=== PATIENT | female | born 1965 | race Two or more races ===

== ENCOUNTER 2016-05-21 08:21 | Emergency (ER) | payer OTHER ==
[~2016-05-21] VITALS: Ht 162.6 cm; Wt 81.6 kg
[~2016-05-21 08:21] MED LIST: ACETAMINOPHEN-1 EAC1 ORAL; ALBUTEROL SULF8.5 GM INH; AMLODIPINE BES2.5 MG ORAL; AZITHROMYCIN250 MG ORAL; MELOXICAM7.5 MG PO; PREDNISONE20 MG ORAL
[2016-05-21 08:43] VITALS: BP 129/85
[2016-05-21] MEDS ORDERED: Metoclopramide 10mg/2ml Inj IVP ONE (08:45)
[2016-05-21] MEDS ORDERED: Ketorolac 30mg Inj IV ONE (08:45)
[2016-05-21] MEDS ORDERED: cefTRIAXone 1 GM in NS 55 ML IVPB ONE (08:45)
[2016-05-21] MEDS ORDERED: DiphenhydrAMINE 50mg/ml Inj IVP ONE (08:45)
[2016-05-21 09:56] LABS: MEAN CORPUSCULAR HEMOGLOBIN 31.7 PG (27.0-31.0); MEAN CORPUSCULAR VOLUME 93 FL (80-99); MEAN PLATELET VOLUME 7.5 FL (6.5-10.1); PLATELET COUNT 238 K/UL (150-450); RED BLOOD COUNT 4.42 M/UL (4.20-5.40); RED CELL DISTRIBUTION WIDTH 12.2 % (11.6-14.8); WHITE BLOOD COUNT 13.8 K/UL (4.8-10.8)
[2016-05-21 10:12] LABS: ALANINE AMINOTRANSFERASE 17 U/L (3-33); ALBUMIN/GLOBULIN RATIO 1.2 (1.0-2.7); ANION GAP 16 (5-15); ASPARTATE AMINO TRANSFERASE 15 U/L (5-40); CALCIUM 8.8 mg/dL (8.6-10.2); CARBON DIOXIDE 27 mEQ/L (20-30); CHLORIDE 91 mEQ/L (98-107); CREATININE 0.6 mg/dL (0.5-0.9); GLOMERULAR FILTRATION RATE > 60 mL/min (>60); HEMOLYSIS 5; POTASSIUM 3.6 mEQ/L (3.4-4.9); SODIUM 134 mEQ/L (135-145); TOTAL PROTEIN 7.4 g/dL (6.6-8.7); TROPONIN I < 0.30 ng/mL (<=0.30)
--- NOTE | 2016-05-21 10:13 | Diagnostic Imaging Report ---
Indication: H/A Technique: Continuous helical CT scanning of the head was performed without intravenous contrast material. Axial and coronal 5 mm sections were generated. Dose: Total Dose Length Product - DLP [address] Dose Index - CTDIvol(s) 70.38 mGy. Comparison:01/15/2010 Findings: The ventricular system is normal in size and configuration. There is no shift of midline structures. No abnormal extra-axial fluid collections are noted. There is no evidence of intracerebral bleeding. No other abnormal high or low density areas are noted within the brain. Impression: Normal CT scan of the head without contrast material. The CT scanner at [facility] is accredited by the [employer] and the scans are performed using protocols designed to limit radiation exposure to as low as reasonably achievable to attain images of sufficient resolution adequate for diagnostic evaluation.
[2016-05-21 10:41] LABS: BAND NEUTROPHILS % (MANUAL) 4 % (0-8); BASOPHILS % (MANUAL) 0 % (0-2); EOSINOPHILS % (MANUAL) 0 % (0-3); LYMPHOCYTES % (MANUAL) 6 % (20-45); NEUTROPHILS % (MANUAL) 86 % (45-75); PLATELET ESTIMATE ADEQUATE; PLATELET MORPHOLOGY NORMAL; TOTAL CELLS COUNTED 100
[2016-05-21 11:25] VITALS: BP 118/84
[2016-05-21 11:34] LABS: APPEARANCE,URINE CLEAR; KETONES,URINE NEGATIVE (NEGATIVE); LEUKOCYTE ESTERASE ,URINE NEGATIVE (NEGATIVE); NITRITE,URINE NEGATIVE (NEGATIVE); PH,URINE 6 (4.5-8.0); PROTEIN,URINE 1+ (NEGATIVE); UROBILINOGEN,URINE NORMAL MG/DL (0.0-1.0)
[2016-05-21 11:47] LABS: BACTERIA,URINE FEW /HPF; SQUAMOUS EPITHELIAL CELL,UR FEW /LPF (NONE/OCC); WBC,URINE 0-2 /HPF (0 - 2)
[2016-05-21 12:22] VITALS: BP 101/64
--- NOTE | 2016-05-21 13:15 | Emergency Room Report ---
History of Present Illness General Chief Complaint: Headache Source: Patient Present Illness HPI Patient presents with headache fever sore throat. She also complains about her vision being off at this time. There is some generalized weakness in her body. She denies any vomiting or diarrhea or, chest pain cough or dysuria. The headache is pounding, diffuse 10/10, not radiating. She did not take any medication. She is able to tolerate liquids, but has not been taking much. No neck stiffness. She was seen here 12/2015 with frontal EMERSON associated with hypertension (had recently started blood pressure medication). H/O influenza A in past. No rashes and denies diabetes. 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 Nursing Documentation: PMH: Agreed, PSxH: Agreed Nursing Documentation-PMH Past Medical History: No History, Except For Hx Hypertension: Yes Review of Systems All Other Systems: negative except mentioned in HPI Physical Exam Vital Signs Date Time Temp Pulse Resp B/P Pulse Ox O2 Delivery O2 Flow Rate FiO2 05/21/16 08:33 100.2 102 18 129/85 95 Room Air Sp02 EP Interpretation: reviewed, normal General Appearance: well appearing, GCS 15, non-toxic, mild distress Head: normocephalic Eyes: bilateral eye EOMI, bilateral eye PERRL, bilateral eye normal inspection ENT: hearing grossly normal, moist mucus membranes, pharyngeal erythema, other - snuses not tender Neck: full range of motion, supple, no meningismus Respiratory: chest non-tender, lungs clear, normal breath sounds Cardiovascular #1: tachycardia Cardiovascular #2: 2+ radial (R) Gastrointestinal: normal inspection, normal bowel sounds, non tender, no mass, non-distended Musculoskeletal: back normal, gait/station normal, normal range of motion Neurologic: alert, oriented x3, 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 DDx: strep, viral, dehydration , fever related cephalgia, migraine, sinusitis amongst others. Consider meningitis, though no meningismus. Evidence of pharyngitis. Concern over blurred vision, though non-focal neuro. Will obtain CT of head. Will treat with fever control, zofran. Will allso start antibiotics as appears strep source. Labs with leukocytosis, normal lactate, min elevated glucose. Patient improved. Mehran PO and no more headache. Laboratory Tests Test 05/21/16 09:27 05/21/16 11:08 White Blood Count 13.8 K/UL (4.8-10.8) H Red Blood Count 4.42 M/UL (4.20-5.40) Hemoglobin 14.0 G/DL (12.0-16.0) Hematocrit 41.2 % (37.0-47.0) Mean Corpuscular Volume 93 FL (80-99) Mean Corpuscular Hemoglobin 31.7 PG (27.0-31.0) H Mean Corpuscular Hemoglobin Concent 34.0 G/DL (32.0-36.0) Red Cell Distribution Width 12.2 % (11.6-14.8) Platelet Count 238 K/UL (150-450) Mean Platelet Volume 7.5 FL (6.5-10.1) Neutrophils (%) (Auto) % (45.0-75.0) Lymphocytes (%) (Auto) % (20.0-45.0) Monocytes (%) (Auto) % (1.0-10.0) Eosinophils (%) (Auto) % (0.0-3.0) Basophils (%) (Auto) % (0.0-2.0) Differential Total Cells Counted 100 Neutrophils % (Manual) 86 % (45-75) H Lymphocytes % (Manual) 6 % (20-45) L Monocytes % (Manual) 4 % (1-10) Eosinophils % (Manual) 0 % (0-3) Basophils % (Manual) 0 % (0-2) Band Neutrophils 4 % (0-8) Platelet Estimate Adequate Platelet Morphology Normal Red Blood Cell Morphology Normal Sodium Level 134 mEQ/L (135-145) L Potassium Level 3.6 mEQ/L (3.4-4.9) Chloride Level 91 mEQ/L (98-107) L Carbon Dioxide Level 27 mEQ/L (20-30) Anion Gap 16 (5-15) H Blood Urea Nitrogen 13 mg/dL (7-23) Creatinine 0.6 mg/dL (0.5-0.9) Estimate Glomerular Filtration Rate > 60 mL/min (>60) Glucose Level 130 mg/dL (74-106) H Lactic Acid Level 1.80 mmol/L (0.66-2.22) Calcium Level 8.8 mg/dL (8.6-10.2) Total Bilirubin 0.4 mg/dL (0.0-1.2) Aspartate Amino Transferase (AST) 15 U/L (5-40) Alanine Aminotransferase (ALT) 17 U/L (3-33) Alkaline Phosphatase 74 U/L (35-104) Total Creatine Kinase 41 U/L (26-140) Troponin I < 0.30 ng/mL (<=0.30) Total Protein 7.4 g/dL (6.6-8.7) Albumin 4.1 g/dL (3.5-5.2) Globulin 3.3 g/dL Albumin/Globulin Ratio 1.2 (1.0-2.7) Urine Color Pale yellow Urine Appearance Clear Urine pH 6 (4.5-8.0) Urine Specific Rillito 1.010 (1.005-1.035) Urine Protein 1+ (NEGATIVE) H Urine Glucose (UA) Negative (NEGATIVE) Urine Ketones Negative (NEGATIVE) Urine Occult Blood 4+ (NEGATIVE) H Urine Nitrite Negative (NEGATIVE) Urine Bilirubin Negative (NEGATIVE) Urine Urobilinogen Normal MG/DL (0.0-1.0) Urine Leukocyte Esterase Negative (NEGATIVE) Urine RBC 5-10 /HPF (0 - 2) H Urine WBC 0-2 /HPF (0 - 2) Urine Squamous Epithelial Cells Few /LPF (NONE/OCC) Urine Bacteria Few /HPF (NONE) Microbiology Date/Time Source Procedure Growth Status 05/21/16 09:27 Nasal Nares Influenza Types A,B Antigen (ROSE) - Final Complete EKG Diagnostic Results Rate: tachycardiac Rhythm: NSR ST Segments: no acute changes Rhythm Strip Diag. Results EP Interpretation: yes Rhythm: NSR, no PVC's, no ectopy CT/MRI/US Diagnostic Results CT/MRI/US Diagnostic Results : Imaging Test Ordered: head Impression nl brain, bones and ST - sinuses normal Last Vital Signs Date Time Temp Pulse Resp B/P Pulse Ox O2 Delivery O2 Flow Rate FiO2 05/21/16 13:52 99.2 76 18 101/64 95 Room Air Status: improved Disposition: HOME, SELF-CARE Condition: Improved Scripts Ibuprofen* (MOTRIN*) 600 Mg Tablet 600 MG ORAL Q6H Y for For Pain, #16 TAB Prov: Antony Nazario M.D. 05/21/16 Ondansetron Odt* (ZOFRAN ODT*) 4 Mg Tab.rapdis 4 MG ORAL Q8H Y for Nausea & Vomiting, #6 TAB 1 Refill Prov: Antony Nazario M.D. 05/21/16 Amoxicillin/Potassium Clav 500-125 Tablet* (AUGMENTIN 500-125 TABLET*) 1 Each Tablet 1 TAB ORAL THREE TIMES A DAY, #21 TAB Prov: Antony Nazario M.D. 05/21/16 Referrals: [facility],REFERRING (PCP) Antony Nazario M.D. May 21, 2016 13:15
[2016-05-21] MEDS ORDERED: AUGMENTIN 500-1 EACH ORAL (13:21)
[2016-05-21] MEDS ORDERED: IBUPROFEN600 MG ORAL (13:21)
[2016-05-21] MEDS ORDERED: ZOFRAN ODT4 MG ORAL (13:21)
[2016-05-21 13:52] VITALS: BP 101/64
--- NOTE | 2016-05-23 13:57 | Cardiology Report ---
APPROVED REPORT EKG Measurement Heart [id number] 130P30 [id number] Sinus tachycardia Moderate voltage criteria for LVH, may be normal variant Borderline ECG
--- NOTE | 2016-06-15 14:59 | Diagnostic Imaging Report ---
Indication: Short of breath Technique: XRAY CHEST 1 V Comparison: 04/26/2015. Findings: The patient has taken a poor inspiration. The cardiomediastinal silhouette is normal. The lungs are clear. There is no evidence of pleural fluid. The bony structures are unremarkable. Impression: Poor inspiratory chest. Otherwise grossly negative.
== END 2016-05-21 13:52 | disposition home or self-care (01) ==
LOC: EMR 09:10
DX: R50.9 Fever, unspecified (principal); R51 Headache; J02.9 Acute pharyngitis, unspecified; I10 Essential (primary) hypertension
CPT/HCPCS: 36415; 70450; 71010; 80053; 81003; 82550; 83605; 84484; 85007; 85025; 86710; 93005; 96360; 96374; 96375; 99284; J0696; J1200; J1885; J2765

== ENCOUNTER 2016-10-05 00:03 | Emergency (ER) | payer MEDICAID, OTHER ==
[~2016-10-05] VITALS: Ht 160 cm; Wt 70.8 kg
[~2016-10-05 00:03] MED LIST changes: +AUGMENTIN 500-1 EACH ORAL; +IBUPROFEN600 MG ORAL; +ZOFRAN ODT4 MG ORAL
[2016-10-05 00:10] VITALS: BP 138/82
[2016-10-05] MEDS ORDERED: OMEPRAZOLE20 M2 ORAL (00:12)
[2016-10-05 00:25] VITALS: BP 135/80
[2016-10-05] MEDS ORDERED: IBUPROFEN600 MG ORAL (00:27)
[2016-10-05] MEDS ORDERED: AZITHROMYCIN250 MG ORAL (00:27)
--- NOTE | 2016-10-05 00:28 | Emergency Room Report ---
History of Present Illness General Chief Complaint: Generalized Weakness Source: Patient Present Illness HPI This is a 51-year-old female who presents with chief complaint of sore throat, fever, body pain. Onset yesterday. She took 2 Motrin without much relief. Nausea but no vomiting. Nothing made it better. Drinking made it worse. Pain is 8/10. Allergies: Coded Allergies: No Known Allergies (Unverified , 10/05/16) Patient History Past Medical History: see triage record, old chart reviewed Past Surgical History: other Pertinent Family History: none Social History: Denies: smoking Last Menstrual Period: n/a Now: No Immunizations: other Reviewed Nursing Documentation: PMH: Agreed, PSxH: Agreed Nursing Documentation-PMH Past Medical History: No History, Except For Hx Hypertension: Yes Review of Systems Constitutional: Reports: chills, fever Eye: Denies: blurred vision, eye pain ENT: Reports: throat pain, Denies: ear pain, nose congestion, throat swelling Respiratory: Denies: cough, shortness of breath Cardiovascular: Denies: chest pain, palpitations Gastrointestinal: Denies: abdominal pain, diarrhea, nausea, vomiting Musculoskeletal: Denies: back pain, joint pain Skin: Denies: rash Neurological: Denies: headache, numbness Endocrine: Denies: increased thirst, increased urine Hematologic/Lymphatic: Denies: easy bruising All Other Systems: negative except mentioned in HPI Physical Exam Vital Signs Date Time Temp Pulse Resp B/P Pulse Ox O2 Delivery O2 Flow Rate FiO2 10/05/16 00:06 100.0 103 20 145/84 95 Room Air vitals with fever Sp02 EP Interpretation: reviewed, normal General Appearance: well appearing, no apparent distress, alert Head: normocephalic, atraumatic Eyes: bilateral eye EOMI, bilateral eye PERRL ENT: hearing grossly normal, tonsillar swelling, pharyngeal erythema, tonsillar exudate Neck: full range of motion, supple, no meningismus Respiratory: chest non-tender, lungs clear, normal breath sounds Cardiovascular #1: regular rate, rhythm, no murmur Gastrointestinal: normal bowel sounds, non tender, no mass, no organomegaly, no bruit, non-distended Musculoskeletal: back normal, gait/station normal, normal range of motion Psychiatric: mood/affect normal Skin: warm/dry Medical Decision Making Diagnostic Impression: Primary Impression: Pharyngitis Qualified Codes: J02.9 - Acute pharyngitis, unspecified ER Course Patient with fever and exudative tonsillitis. Most likely strep. She looks well. No evidence of sepsis, pneumonia, retropharyngeal abscess, peritonsillar abscess or Pawan angina. We'll discharge home. Last Vital Signs Date Time Temp Pulse Resp B/P Pulse Ox O2 Delivery O2 Flow Rate FiO2 10/05/16 00:06 100.0 103 20 145/84 95 Room Air Status: improved Disposition: HOME, SELF-CARE Condition: Stable Scripts Azithromycin* (ZITHROMAX*) 250 Mg Tablet 250 MG ORAL DAILY, #4 TAB 0 Refills Prov: JOAO MCKINLEY M.D. 10/05/16 Ibuprofen* (MOTRIN*) 600 Mg Tablet 600 MG ORAL THREE TIMES A DAY, #30 TAB 0 Refills Prov: JOAO MCKINLEY M.D. 10/05/16 Additional Instructions: Followup with your DrDavid in 2-3 days. Return if symptom worsen. JOAO MCKINLEY M.D. Oct 05, 2016 00:28
[2016-10-05 00:30] VITALS: BP 135/80
[2016-10-05] MEDS ORDERED: Acetaminophen 500mg (ES) tab ORAL ONE (00:30)
[2016-10-05] MEDS ORDERED: Azithromycin 250mg tab ORAL ONE (00:30)
== END 2016-10-05 00:30 | disposition home or self-care (01) ==
LOC: EMR 00:24
DX: J02.9 Acute pharyngitis, unspecified (principal); I10 Essential (primary) hypertension
CPT/HCPCS: 99284; Q0144

== ENCOUNTER 2017-01-08 20:28 | Emergency (ER) | payer MEDICAID, OTHER ==
[~2017-01-08] VITALS: Ht 160 cm; Wt 72.6 kg
[~2017-01-08 20:28] MED LIST changes: +OMEPRAZOLE20 M2 ORAL
[2017-01-08] MEDS ORDERED: Tylenol #3 tab (300mg/30mg) ORAL ONE (20:45)
[2017-01-08] MEDS ORDERED: VENTOLIN HFA18 GM INH (20:45)
[2017-01-08] MEDS ORDERED: ACETAMINOPHEN-1 EAC1 ORAL (20:45)
[2017-01-08] MEDS ORDERED: PROMETHAZI6.25 MG/1 ORAL (20:45)
[2017-01-08] MEDS ORDERED: Albuterol ud Inhalation HHN ONE (20:45)
[2017-01-08 20:49] VITALS: BP 154/72
--- NOTE | 2017-01-08 21:10 | Emergency Room Report ---
History of Present Illness General Chief Complaint: Upper Respiratory Illness Source: Patient Present Illness HPI 51YOF walk-in with one week of cough with phlegm Denies fever/chills, sore throat, chest pain, SOB, abd pain Deneis sick contacts Denies smoking, COPD/ashtma Allergies: Coded Allergies: No Known Allergies (Unverified , 10/05/16) Patient History Past Medical History: none Past Surgical History: none Pertinent Family History: none Social History: Denies: smoking, alcohol use, drug use Now: No Immunizations: UTD Reviewed Nursing Documentation: PMH: Agreed, PSxH: Agreed Nursing Documentation-PMH Past Medical History: No History, Except For Hx Hypertension: Yes Review of Systems All Other Systems: negative except mentioned in HPI Physical Exam Vital Signs Date Time Temp Pulse Resp B/P (MAP) Pulse Ox O2 Delivery O2 Flow Rate FiO2 01/08/17 20:32 98.4 86 17 154/72 96 Room Air 01/08/17 20:53 21 Sp02 EP Interpretation: reviewed, normal General Appearance: normal inspection, well appearing, no apparent distress, alert, GCS 15, non-toxic Head: normocephalic, atraumatic Eyes: bilateral eye PERRL, bilateral eye EOMI ENT: normal ENT inspection, hearing grossly normal, normal voice Neck: normal inspection, full range of motion, supple, no bony tend Respiratory: normal inspection, lungs clear, normal breath sounds, no rhonchi, no respiratory distress, no retraction, no accessory muscle use, no wheezing, speaking full sentences Cardiovascular #1: regular rate, rhythm, no edema Gastrointestinal: normal inspection, normal bowel sounds, non tender, soft, no guarding, no hernia Genitourinary: no CVA tenderness Musculoskeletal: normal inspection, back normal, normal range of motion, Ramirez' s Sign negative Neurologic: normal inspection, alert, responsive, speech normal Psychiatric: normal inspection, judgement/insight normal, mood/affect normal Skin: normal inspection, normal color, no rash Medical Decision Making Diagnostic Impression: Primary Impression: Bronchitis ER Course VSS. Afebrile Lungs CTAB, no rhonchi Unlikely PNA Albuterol and T#3 given in ED DC home Close PMD followup Last Vital Signs Date Time Temp Pulse Resp B/P (MAP) Pulse Ox O2 Delivery O2 Flow Rate FiO2 01/08/17 21:05 82 18 99 Room Air 21 10/29/17 20:49 98.4 154/72 Status: improved Disposition: HOME, SELF-CARE Condition: Improved Scripts Promethazine Hcl (PROMETHAZINE HCL*) 6.25 Mg/5 Ml Syrup 5 ML ORAL Q8H for For Cough, #120 ML 0 Refills Prov: JOSEE STRINGER M.D. 01/08/17 Acetaminophen With Codeine (T#3) (TYLENOL #3 TAB*) Y Tab 1 TAB ORAL QHS Y for For Cough for 7 Days, #14 TAB Prov: JOSEE STRINGER M.D. 01/08/17 Albuterol Sulfate (VENTOLIN HFA) 18 Gm Hfa.aer.ad 1 PUFF INH EVERY 6 HOURS for For Cough, #18 GM 0 Refills Prov: JOSEE STRINGER M.D. 01/08/17 Patient Instructions: Upper Respiratory Infection, Adult Additional Instructions: - Use ventolin during the day for cough along with cough syrup - At night you can use cough syrup or Tylenol #3 for cough - Bronchitis cough CAN last 4-6 weeks - You do not need antibiotics at this point - likely caused by a virus - Follow up with your doctor in 2-3 days JOSEE STRINGER M.D. Jan 08, 2017 21:10
[2017-01-08 21:14] VITALS: BP 154/72
== END 2017-01-08 21:16 | disposition home or self-care (01) ==
LOC: EMR 21:10
DX: J40 Bronchitis, not specified as acute or chronic (principal); I10 Essential (primary) hypertension
CPT/HCPCS: 94640; 94664; 99284

== ENCOUNTER 2017-01-17 22:27 | Emergency (ER) | payer OTHER ==
[~2017-01-17] VITALS: Ht 160 cm; Wt 72.6 kg
[~2017-01-17 22:27] MED LIST changes: +PROMETHAZI6.25 MG/1 ORAL; +VENTOLIN HFA18 GM INH
[2017-01-17 23:10] VITALS: BP 135/78
[2017-01-17 23:10] LABS: APPEARANCE,URINE SLIGHTLY CLOUDY; BILIRUBIN, URINE NEGATIVE (NEGATIVE); COLOR,URINE YELLOW; GLUCOSE, URINE (UA) NEGATIVE (NEGATIVE); KETONES,URINE NEGATIVE (NEGATIVE); LEUKOCYTE ESTERASE ,URINE NEGATIVE (NEGATIVE); NITRITE,URINE NEGATIVE (NEGATIVE); PH,URINE 5 (4.5-8.0); PROTEIN,URINE 2+ (NEGATIVE); UROBILINOGEN,URINE NORMAL MG/DL (0.0-1.0)
[2017-01-17 23:12] LABS: EOSINOPHILS % (AUTO) 2.6 % (0.0-3.0); HEMATOCRIT 44.4 % (37.0-47.0); HEMOGLOBIN 13.8 G/DL (12.0-16.0); LYMPHOCYTES % (AUTO) 22.8 % (20.0-45.0); MEAN CORPUSCULAR VOLUME 97 FL (80-99); MONOCYTES % (AUTO) 7.3 % (1.0-10.0); NEUTROPHILS % (AUTO) 66.4 % (45.0-75.0); PLATELET COUNT 283 K/UL (150-450); RED BLOOD COUNT 4.59 M/UL (4.20-5.40); RED CELL DISTRIBUTION WIDTH 11.9 % (11.6-14.8); WHITE BLOOD COUNT 8.9 K/UL (4.8-10.8)
[2017-01-17 23:36] LABS: ALANINE AMINOTRANSFERASE 18 U/L (12-78); ALBUMIN 3.5 G/DL (3.4-5.0); ALBUMIN/GLOBULIN RATIO 0.9 (1.0-2.7); ALKALINE PHOSPHATASE 82 U/L (46-116); ANION GAP 6 mmol/L (5-15); ASPARTATE AMINO TRANSFERASE 9 U/L (15-37); BILIRUBIN,TOTAL 0.3 MG/DL (0.2-1.0); BLOOD UREA NITROGEN 13 mg/dL (7-18); CALCIUM 8.4 MG/DL (8.5-10.1); CARBON DIOXIDE 28 MMOL/L (21-32); CHLORIDE 105 MMOL/L (98-107); CREATININE 0.6 MG/DL (0.55-1.30); POTASSIUM 3.8 MMOL/L (3.5-5.1); SODIUM 139 MMOL/L (136-145)
[2017-01-18] MEDS ORDERED: Lidocaine 2% Visc 15ml soln ORAL ONE
[2017-01-18] MEDS ORDERED: Mylanta II UD 30ml ORAL ONE
[2017-01-18] MEDS ORDERED: PEPCID20 MG ORAL (00:11)
--- NOTE | 2017-01-18 00:15 | Emergency Room Report ---
History of Present Illness General Chief Complaint: Abdominal Pain Source: Patient Present Illness HPI 51YOF with known gastritis and endoscopy last month that shows gastritis on Omeprazole with epigastric pain for 2 days with nausea Denies fever/chills, vomiting Associated with some diarrhea Taking Omeprazole as prescribed No sick contacts or foreign travel No previous abd surgery Allergies: Coded Allergies: No Known Allergies (Unverified , 10/05/16) Patient History Past Medical History: other - gastritis Past Surgical History: none Pertinent Family History: none Social History: Denies: smoking, alcohol use, drug use Last Menstrual Period: None Now: No Immunizations: UTD Reviewed Nursing Documentation: PMH: Agreed, PSxH: Agreed Nursing Documentation-PMH Hx Hypertension: Yes Hx Asthma: Yes Review of Systems All Other Systems: negative except mentioned in HPI Physical Exam Vital Signs Date Time Temp Pulse Resp B/P (MAP) Pulse Ox O2 Delivery O2 Flow Rate FiO2 01/17/17 22:31 98.2 83 18 154/92 97 Room Air Sp02 EP Interpretation: reviewed, normal General Appearance: normal inspection, well appearing, no apparent distress, alert, GCS 15, non-toxic Head: normocephalic, atraumatic ENT: normal ENT inspection, hearing grossly normal, normal voice Neck: normal inspection, full range of motion, supple, no bony tend Respiratory: normal inspection, lungs clear, normal breath sounds, no respiratory distress, no retraction, no wheezing Cardiovascular #1: regular rate, rhythm, no edema Gastrointestinal: normal inspection, normal bowel sounds, non tender, soft, no guarding, no hernia, other - Mild epigastric ttp Genitourinary: no CVA tenderness Musculoskeletal: normal inspection, back normal, normal range of motion, Ramirez' s Sign negative Neurologic: normal inspection, alert, responsive, speech normal Psychiatric: normal inspection, judgement/insight normal, mood/affect normal Skin: normal inspection, normal color, no rash Medical Decision Making Diagnostic Impression: Primary Impression: Gastritis Qualified Codes: K29.50 - Unspecified chronic gastritis without bleeding ER Course VSS. Afebrile Mild epigastric ttp Labs: No leuks. H&h stable. LFTs normal. UA contaminated - no symptoms. Will NOT treat Given GI Cocktail and PPI IV here Will add pepcid to Omeprazole Close PMD followup DC home Low suspicion for acute bacterial/surgical process requiring additional lab work , imaging, admission and/or surgical evaluation at this time given well appearing, non-focal abd on serial exam, stable vital signs, and tolerating PO. In shared decision making process with patient, understands to return to ER for worsening symptoms and to followup with PMD in reasonable amount of time, 2-3 days. EKG Diagnostic Results Rate: normal Rhythm: NSR ST Segments: no acute changes ASA given to the pt in ED: No Rhythm Strip Diag. Results EP Interpretation: yes Rate: 74 Rhythm: NSR, no PVC's, no ectopy Last Vital Signs Date Time Temp Pulse Resp B/P (MAP) Pulse Ox O2 Delivery O2 Flow Rate FiO2 01/17/17 23:10 98.2 75 23 135/78 96 Room Air Status: improved Disposition: HOME, SELF-CARE Condition: Improved Scripts Famotidine (PEPCID) 20 Mg Tablet 20 MG ORAL BID for 7 Days, #14 TAB 0 Refills Prov: JOSEE STRINGER M.D. 01/18/17 Patient Instructions: Gastritis, Adult, [id number] Additional Instructions: - Continue taking omeprazole as prescribed - Add pepcid twice a day for 1 week or until your symptoms improve - Follow up with your doctor in 2-3 days JOSEE STRINGER M.D. Jan 18, 2017 00:15
[2017-01-18 00:31] VITALS: BP 118/58
--- NOTE | 2017-01-18 15:27 | Cardiology Report ---
APPROVED REPORT EKG Measurement Heart [id number] 136P51 [id number] Normal sinus rhythm Left axis deviation Minimal voltage criteria for LVH, may be normal variant Abnormal ECG
--- NOTE | 2017-01-18 15:27 | Cardiology Report ---
APPROVED REPORT EKG Measurement Heart [id number] [place] 136P51 [id number] Normal sinus rhythm Left axis deviation Minimal voltage criteria for LVH, may be normal variant Abnormal ECG
--- NOTE | 2017-01-18 15:27 | Cardiology Report ---
APPROVED REPORT EKG Measurement Heart [id number] 136P51 [id number] Normal sinus rhythm Left axis deviation Minimal voltage criteria for LVH, may be normal variant Abnormal ECG
== END 2017-01-18 00:32 | disposition home or self-care (01) ==
LOC: EMR 23:53
DX: K29.70 Gastritis, unspecified, without bleeding (principal); I10 Essential (primary) hypertension; J45.909 Unspecified asthma, uncomplicated
CPT/HCPCS: 36415; 80053; 81003; 83690; 84484; 85025; 87086; 93005; 96374; 96375; 99284; J2405; S0028

== ENCOUNTER 2017-11-01 18:30 | Emergency (ER) | payer MEDICAID ==
[~2017-11-01] VITALS: Ht 160 cm; Wt 74.8 kg
[~2017-11-01 18:30] MED LIST changes: +BENZONATATE200 MG ORAL; +PEPCID20 MG ORAL; +PROMETHAZINE-C118 M1 ORAL
[2017-11-01] MEDS ORDERED: TRAZODONE HCL50 MG ORAL (18:42)
[2017-11-01 18:53] VITALS: BP 136/78
[2017-11-01] MEDS ORDERED: TransDerm Scop 1mg/72HR Patch TDERMAL ONE (19:15)
[2017-11-01 19:53] LABS: BILIRUBIN, URINE NEGATIVE (NEGATIVE); COLOR,URINE PALE YELLOW; GLUCOSE, URINE (UA) NEGATIVE (NEGATIVE); KETONES,URINE NEGATIVE (NEGATIVE); LEUKOCYTE ESTERASE ,URINE NEGATIVE (NEGATIVE); NITRITE,URINE NEGATIVE (NEGATIVE); PH,URINE 5 (4.5-8.0); PROTEIN,URINE NEGATIVE (NEGATIVE); UROBILINOGEN,URINE NORMAL MG/DL (0.0-1.0)
[2017-11-01 19:55] LABS: BASOPHILS % (AUTO) 1.1 % (0.0-2.0); EOSINOPHILS % (AUTO) 1.9 % (0.0-3.0); LYMPHOCYTES % (AUTO) 28.5 % (20.0-45.0); MEAN CORPUSCULAR VOLUME 95 FL (80-99); NEUTROPHILS % (AUTO) 59.5 % (45.0-75.0); PLATELET COUNT 282 K/UL (150-450); RED BLOOD COUNT 4.41 M/UL (4.20-5.40); WHITE BLOOD COUNT 8.9 K/UL (4.8-10.8)
[2017-11-01 19:56] LABS: APPEARANCE,URINE CLEAR
[2017-11-01 20:06] LABS: ANION GAP 9 mmol/L (5-15); BLOOD UREA NITROGEN 16 mg/dL (7-18); CALCIUM 8.9 MG/DL (8.5-10.1); CARBON DIOXIDE 28 MMOL/L (21-32); CHLORIDE 104 MMOL/L (98-107); CREATININE 0.6 MG/DL (0.55-1.30); POTASSIUM 3.7 MMOL/L (3.5-5.1); SODIUM 141 MMOL/L (136-145)
[2017-11-01 20:11] LABS: ALANINE AMINOTRANSFERASE 18 U/L (12-78); ALBUMIN 3.5 G/DL (3.4-5.0); ALBUMIN/GLOBULIN RATIO 0.9 (1.0-2.7); ALKALINE PHOSPHATASE 78 U/L (46-116); ASPARTATE AMINO TRANSFERASE 9 U/L (15-37); BILIRUBIN,TOTAL 0.1 MG/DL (0.2-1.0)
[2017-11-01] MEDS ORDERED: Meclizine 25mg tab ORAL ONE (20:15)
[2017-11-01] MEDS ORDERED: MECLIZINE HCL25 MG ORAL (20:32)
--- NOTE | 2017-11-01 20:32 | Emergency Room Report ---
History of Present Illness General Chief Complaint: Dizziness Source: Patient, Medical Record Present Illness HPI 52 y/o female c/o positional vertigo for 3 days. Assoc sxs include feeling dizzy when she looks down. States sxs improve with laying in bed and are worse with movement and with walking. Not taking medications for sxs. States she has no other physical complaints. Denies any fever, chills, nausea, EMERSON, vision changes, CP, SOB, numbness, paralysis, facial droop or weakness, ALOC, abd pain , dysuria, or neck stiffness. Allergies: Coded Allergies: No Known Allergies (Unverified , 10/05/16) Patient History Past Medical History: see triage record Past Surgical History: , other - tubal ligation Pertinent Family History: HTN, other - insomnia Last Menstrual Period: 10/30/17 Now: No Reviewed Nursing Documentation: PMH: Agreed; PSxH: Agreed Nursing Documentation-PMH Past Medical History: No History, Except For Hx Hypertension: Yes Hx Asthma: Yes Review of Systems All Other Systems: negative except mentioned in HPI Physical Exam Vital Signs Date Time Temp Pulse Resp B/P (MAP) Pulse Ox O2 Delivery O2 Flow Rate FiO2 11/01/17 18:39 98.3 87 18 136/78 98 Room Air 98.2 Sp02 EP Interpretation: reviewed, normal General Appearance: no apparent distress, alert, GCS 15, non-toxic Head: normocephalic, atraumatic Eyes: bilateral eye normal inspection, bilateral eye PERRL, bilateral eye EOMI ENT: hearing grossly normal, normal pharynx, no angioedema, normal voice, TMs + canals normal, uvula midline Neck: full range of motion, supple, no meningismus, no bony tend, supple/symm/ no masses Respiratory: chest non-tender, lungs clear, normal breath sounds, speaking full sentences Cardiovascular #1: regular rate, rhythm, no edema, no gallop, normal capillary refill Gastrointestinal: non tender, soft Musculoskeletal: back normal, gait/station normal, normal range of motion, non- tender Neurologic: alert, oriented x3, responsive, continuity reader III-XII nml as tested, motor strength/tone normal, sensory intact, cerebellar normal, normal gait, speech normal Psychiatric: judgement/insight normal, memory normal, mood/affect normal, no suicidal/homicidal ideation Skin: normal color, no rash, warm/dry, well hydrated Medical Decision Making PA Attestation Dr. Dudley my supervising physician with whom patient management has been discussed with. Reaction to Intervention: Improved Diagnostic Impression: Primary Impression: Positional vertigo ER Course Pt. presents to the ED c/o Vertigo Ddx considered but are not limited to BPPV, labrynthitis, orthostatic hypotension, OH, CVA Vital signs: are WNL, pt. is afebrile H&PE are most consistent with positional vertigo ORDERS: CT Head, UA, CBC and CMP were negative ED INTERVENTIONS: Scopolamine w/ Improvement of sxs. DISCHARGE: At this time pt. is stable for d/c to home. Will provide printed patient care instructions, and any necessary prescriptions. Care plan and follow up instructions have been discussed with the patient prior to discharge. Laboratory Tests Test 11/01/17 19:36 White Blood Count 8.9 K/UL (4.8-10.8) Red Blood Count 4.41 M/UL (4.20-5.40) Hemoglobin 14.0 G/DL (12.0-16.0) Hematocrit 42.0 % (37.0-47.0) Mean Corpuscular Volume 95 FL (80-99) Mean Corpuscular Hemoglobin 31.7 PG (27.0-31.0) H Mean Corpuscular Hemoglobin Concent 33.3 G/DL (32.0-36.0) Red Cell Distribution Width 12.0 % (11.6-14.8) Platelet Count 282 K/UL (150-450) Mean Platelet Volume 6.9 FL (6.5-10.1) Neutrophils (%) (Auto) 59.5 % (45.0-75.0) Lymphocytes (%) (Auto) 28.5 % (20.0-45.0) Monocytes (%) (Auto) 9.0 % (1.0-10.0) Eosinophils (%) (Auto) 1.9 % (0.0-3.0) Basophils (%) (Auto) 1.1 % (0.0-2.0) Urine Color Pale yellow Urine Appearance Clear Urine pH 5 (4.5-8.0) Urine Specific [place] 1.025 (1.005-1.035) Urine Protein Negative (NEGATIVE) Urine Glucose (UA) Negative (NEGATIVE) Urine Ketones Negative (NEGATIVE) Urine Blood 3+ (NEGATIVE) H Urine Nitrite Negative (NEGATIVE) Urine Bilirubin Negative (NEGATIVE) Urine Urobilinogen Normal MG/DL (0.0-1.0) Urine Leukocyte Esterase Negative (NEGATIVE) Urine RBC 0-2 /HPF (0 - 2) Urine WBC 0-2 /HPF (0 - 2) Urine Squamous Epithelial Cells Few /LPF (NONE/OCC) Urine Bacteria Few /HPF (NONE) Urine Yeast Few /HPF (NONE) H Sodium Level 141 MMOL/L (136-145) Potassium Level 3.7 MMOL/L (3.5-5.1) Chloride Level 104 MMOL/L (98-107) Carbon Dioxide Level 28 MMOL/L (21-32) Anion Gap 9 mmol/L (5-15) Blood Urea Nitrogen 16 mg/dL (7-18) Creatinine 0.6 MG/DL (0.55-1.30) Estimate Glomerular Filtration Rate > 60 mL/min (>60) Glucose Level 110 MG/DL (74-106) H Calcium Level 8.9 MG/DL (8.5-10.1) Total Bilirubin 0.1 MG/DL (0.2-1.0) L Aspartate Amino Transferase (AST) 9 U/L (15-37) L Alanine Aminotransferase (ALT) 18 U/L (12-78) Alkaline Phosphatase 78 U/L (46-116) Total Protein 7.5 G/DL (6.4-8.2) Albumin 3.5 G/DL (3.4-5.0) Globulin 4.0 g/dL Albumin/Globulin Ratio 0.9 (1.0-2.7) L CT/MRI/US Diagnostic Results CT/MRI/US Diagnostic Results : Imaging Test Ordered: CT Head w/o Contrast Impression Comparison: Unenhanced CT head 05/21/16 Impression: -Normal study. -No findings to explain patient's symptoms. Last Vital Signs Date Time Temp Pulse Resp B/P (MAP) Pulse Ox O2 Delivery O2 Flow Rate FiO2 11/01/17 18:53 98.2 88 18 136/78 98 Room Air 98.2 Disposition: HOME, SELF-CARE Condition: Improved Scripts Meclizine Hcl* (MECLIZINE*) 25 Mg Tablet 25 MG ORAL THREE TIMES A DAY for 10 Days, #30 TAB Prov: Rasheeda Velazquez 11/01/17 Referrals: [facility],REFERRING (PCP) Patient Instructions: Benign Positional Vertigo Additional Instructions: Take medication as directed. RTC if sxs do not improve or worsen in the next 3- 5 days. Advised patient to go to ER if patient experiences new or severe headache, temperature greater than 100.4F (38C), seeing double or having trouble seeing clearly, trouble speaking or hearing, weakness in an arm or leg, an inability to walk without assistance, passing out, numbness or tingling, chest pain, or vomiting that will not stop. Rasheeda Velazquez Nov 01, 2017 20:32
[2017-11-01 20:54] VITALS: BP 158/89
--- NOTE | 2017-11-02 08:48 | Diagnostic Imaging Report ---
Indication: Dizziness Technique: Continuous helical CT scanning of the head was performed utilizing automated exposure control without intravenous contrast material. Axial and coronal reconstructions were obtained. Comparison: 05/21/2016 and 01/15/2010 CT dose: Total DLP 1414.08 mGycm; CTDI vol 70.38 mGy Findings: There is no acute intracranial hemorrhage, mass effect or cortical edema. The ventricles, cisterns and sulci are within normal limits for age and stable compared to the prior exam. Visualized mastoid air cells and paranasal sinuses are unremarkable. No focal lesions of the bony calvarium or soft tissues of the scalp are seen. IMPRESSION: No evidence of acute intracranial hemorrhage, mass effect or cortical edema. MRI may be obtained for more sensitive evaluation as clinically indicated. The CT scanner at [facility] is accredited by the [employer] and the scans are performed using protocols designed to limit radiation exposure to as low as reasonably achievable to attain images of sufficient resolution adequate for diagnostic evaluation.
== END 2017-11-01 20:54 | disposition home or self-care (01) ==
LOC: EMR 19:23
DX: H81.10 Benign paroxysmal vertigo, unspecified ear (principal); I10 Essential (primary) hypertension; J45.909 Unspecified asthma, uncomplicated; Z98.51 Tubal ligation status; G47.00 Insomnia, unspecified
CPT/HCPCS: 36415; 70450; 80053; 81003; 85025; 87086; 87181; 99284

== ENCOUNTER 2017-11-15 18:43 | Emergency (ER) | payer MEDICAID ==
[~2017-11-15] VITALS: Ht 157.5 cm; Wt 76.2 kg
[~2017-11-15 18:43] MED LIST changes: +MECLIZINE HCL25 MG ORAL; +TRAZODONE HCL50 MG ORAL
[2017-11-15 18:51] VITALS: BP 174/80
--- NOTE | 2017-11-15 18:53 | Emergency Room Report ---
History of Present Illness General Chief Complaint: General Complaint Present Illness HPI 52-year-old female presents to the emergency department after receiving a letter regarding abnormal lab results from her most recent visit to the ED. Patient reports urinary frequency and states that initially she had some hematuria which has resolved. Patient denies abdominal pain, low back pain or dysuria. Patient denies fevers or chills. Allergies: Coded Allergies: No Known Allergies (Unverified , 10/05/16) Patient History Past Medical History: see triage record Past Surgical History: none Pertinent Family History: none Now: No Immunizations: UTD Reviewed Nursing Documentation: PMH: Agreed; PSxH: Agreed Nursing Documentation-PMH Hx Hypertension: Yes Hx Asthma: Yes Review of Systems All Other Systems: negative except mentioned in HPI Physical Exam Vital Signs Date Time Temp Pulse Resp B/P (MAP) Pulse Ox O2 Delivery O2 Flow Rate FiO2 11/15/17 18:46 98.3 83 18 174/80 95 Room Air 98.2 Sp02 EP Interpretation: reviewed, normal General Appearance: no apparent distress, alert, GCS 15, non-toxic Head: normocephalic, atraumatic Eyes: bilateral eye normal inspection, bilateral eye PERRL ENT: hearing grossly normal, normal voice Neck: full range of motion Respiratory: lungs clear, normal breath sounds, speaking full sentences Gastrointestinal: non tender, soft Genitourinary: normal inspection, no CVA tenderness Musculoskeletal: back normal, gait/station normal, normal range of motion, non- tender Neurologic: alert, oriented x3, responsive, motor strength/tone normal, sensory intact, normal gait, speech normal, grossly normal Psychiatric: judgement/insight normal Skin: normal color, no rash, warm/dry, well hydrated Medical Decision Making PA Attestation Dr. morales is my supervising Physician whom patient management has been discussed with. Diagnostic Impression: Primary Impression: Urinary tract infection Qualified Codes: N30.00 - Acute cystitis without hematuria Additional Impression: Low back strain Qualified Codes: S39.012A - Strain of muscle, fascia and tendon of lower back , initial encounter ER Course 52-year-old female presents to the emergency department after receiving a letter regarding abnormal lab results from her most recent visit to the ED. Patient reports urinary frequency and states that initially she had some hematuria which has resolved. Patient denies abdominal pain, low back pain or dysuria. Patient denies fevers or chills. Ddx considered but are not limited to UTi , Pyelo, STI, Stone, Cystitis Vital signs: are WNL, pt. is afebrile H&PE are most consistent with UTI - review of most recent C& S reports from [facility] last visit shows presence of E.coli with roger-sensitivity to abx. - ED INTERVENTIONS: None required at this time. DISCHARGE: At this time pt. is stable for d/c to home. Will provide printed patient care instructions, and any necessary prescriptions. Care plan and follow up instructions have been discussed with the patient prior to discharge. Last Vital Signs Date Time Temp Pulse Resp B/P (MAP) Pulse Ox O2 Delivery O2 Flow Rate FiO2 11/15/17 18:46 98.3 83 18 174/80 95 Room Air 98.2 Disposition: HOME, SELF-CARE Condition: Stable Scripts Trimethoprim/Sulfamethoxazole 160/800* (BACTRIM DS TABLET*) 1 Each Tablet 1 TAB ORAL TWICE A DAY for 7 Days, #14 TAB Prov: Grecia Vega 11/15/17 Lidocaine (Lidoderm) 1 Each Adh..patch 1 PATCH TOPIC DAILY, #30 PATCH 0 Refills Patch(es) may remain in place for up to 12 hours in any 24-hour period. Prov: Grecia Vega 11/15/17 Patient Instructions: Urinary Tract Infection, [id number] Additional Instructions: Take medications as directed. Follow up with a Primary Care Provider in 3-5 days, even if your symptoms have resolved. --Please review list of primary care clinics, if you do not already have a primary care provider Return sooner to ED if new symptoms occur, or current symptoms become worse. - Please note that this Emergency Department Report was dictated using [employer] faculty member technology software, occasionally this can lead to erroneous entry secondary to interpretation by the dictation equipment. Grecia Vega Nov 15, 2017 18:53
[2017-11-15] MEDS ORDERED: LIDODERM700 M1 TOPIC (18:59)
[2017-11-15] MEDS ORDERED: NITROFURANTOIN100 M2 ORAL (18:59)
[2017-11-15] MEDS ORDERED: BACTRIM DS TAB1 EAC1 ORAL (19:27)
[2017-11-15 19:28] VITALS: BP 174/80
== END 2017-11-15 19:30 | disposition home or self-care (01) ==
LOC: EMR 19:11
DX: N39.0 Urinary tract infection, site not specified (principal); S39.012A Strain of muscle, fascia and tendon of lower back, initial encounter; X58.XXXA Exposure to other specified factors, initial encounter; Y92.9 Unspecified place or not applicable; I10 Essential (primary) hypertension; J45.909 Unspecified asthma, uncomplicated
CPT/HCPCS: 99282

== ENCOUNTER 2018-01-23 17:39 | Emergency (ER) | payer MEDICAID ==
[~2018-01-23] VITALS: Ht 154.9 cm; Wt 72.6 kg
[~2018-01-23 17:39] MED LIST changes: +BACTRIM DS TAB1 EAC1 ORAL; +LIDODERM700 M1 TOPIC; +NITROFURANTOIN100 M2 ORAL
[2018-01-23 17:43] VITALS: BP 153/78
--- NOTE | 2018-01-23 18:25 | Emergency Room Report ---
History of Present Illness General Chief Complaint: Flu Like Symptoms Source: Patient, Medical Record Present Illness HPI 52-year-old female patient presents ER complaining of "pain all over". Reports symptoms began yesterday. Reports chills during this time, denies fever. Denies shortness of breath. Reports history of high blood pressure and gastritis, states she is taking medication, takes amlodipine and omeprazole. reports pain with urinating, denies hematuria or vaginal discharge. Denies history of diabetes. Denies vomiting, reports nausea. Denies vertigo or dizziness. Denies chest pain, abdominal pain. Denies diarrhea. Denies cough. Denies hx of arthritis or lupus. Denies rash. Allergies: Coded Allergies: No Known Allergies (Unverified , 10/05/16) Patient History Past Medical History: see triage record Last Menstrual Period: menopause Reviewed Nursing Documentation: PMH: Agreed; PSxH: Agreed Nursing Documentation-PMH Past Medical History: No History, Except For Hx Hypertension: Yes Hx Asthma: Yes Hx Gastrointestinal Problems: Yes - Gerd Review of Systems All Other Systems: negative except mentioned in HPI Physical Exam Vital Signs Date Time Temp Pulse Resp B/P (MAP) Pulse Ox O2 Delivery O2 Flow Rate FiO2 01/23/18 17:43 99.1 92 18 153/78 98 Room Air Sp02 EP Interpretation: reviewed, normal General Appearance: well appearing, no apparent distress, alert, GCS 15, non- toxic Head: normocephalic, atraumatic Eyes: bilateral eye normal inspection, bilateral eye PERRL ENT: hearing grossly normal, normal pharynx, no angioedema, normal voice, uvula midline, moist mucus membranes Neck: full range of motion Respiratory: lungs clear, normal breath sounds, no rhonchi, no respiratory distress, no accessory muscle use, no wheezing, speaking full sentences Cardiovascular #1: regular rate, rhythm, no edema Gastrointestinal: non tender, soft, no mass, non-distended, no guarding, no rebound Genitourinary: no CVA tenderness Musculoskeletal: back normal, digits/nails normal, gait/station normal, normal range of motion, non-tender Neurologic: alert, oriented x3, responsive, motor strength/tone normal, sensory intact Psychiatric: mood/affect normal Skin: no rash Lymphatic: no adenopathy Medical Decision Making PA Attestation Dr. Solano is my supervising Physician whom patient management has been discussed with. Diagnostic Impression: Primary Impression: UTI (urinary tract infection) Additional Impressions: Yeast infection Elevated blood pressure reading ER Course Pt. presents to the ED c/o pain all over body and with urination. Ddx considered but are not limited to influenza, UTI, yeast infection, LA, dehydration, anemia, electrolyte abnormality, anxiety. Vital signs: are WNL, pt. is afebrile Blood pressure mildly elevated at this time, will continue to monitor. Denies chest pain, shortness of breath, vision changes, does not require acute intervention at ER at this time. Follow with primary care provider discuss further treatment and referral. Advised on low-sodium diet, advised on diet and exercise. ER COURSE: chest x-ray shows no acute disease and EKG shows no ST elevations, low suspicion for cardiac etiology of pain, low suspicion for LA. CBC unremarkable, no elevation WBCs CMP elevation in blood glucose, remainder unremarkable UA shows bacteria, WBCs, yeast infection, will provide patient with fluconazole in ER and discharged home with antibiotics Flu swab negative for influenza A/B Followup with PCP and discuss further treatment and referral at that time. advised patient on symptomatic relief her symptoms. Tylenol for pain symptoms. Drink plenty of fluids. reports symptoms improved while in the ER. ER precautions given. Blood pressure reading stable prior to discharge, OK for outpatient treatment. Followup with PCP and discuss referral to cardiology. DISCHARGE: Rx provided for Tylenol for pain Rx provided for Keflex At this time pt is stable for d/c to home. Patient is resting comfortably, in no acute distress, nontoxic appearing, talking without difficulty. Patient to take medications as instructed Will provide with patient care instructions and any necessary prescriptions. Care plan and follow-up instructions provided. Patient instructed to follow-up with primary care provider in 3 - 5 days. Patient questions asked and answered. Patient reports understanding and agreement to treatment plan. ER precautions given. Patient instructed to return to ER immediately for any new or worsening of symptoms including but not limited to increasing SOB, persistent fever, chest pain, intractable vomiting. - Please note that this Emergency Department Report was dictated using [employer] ship technology software, occasionally this can lead to erroneous entry secondary to interpretation by the dictation equipment. Labs Test 01/23/18 18:39 White Blood Count 10.8 K/UL (4.8-10.8) Red Blood Count 4.10 M/UL (4.20-5.40) Hemoglobin 13.3 G/DL (12.0-16.0) Hematocrit 37.9 % (37.0-47.0) Mean Corpuscular Volume 92 FL (80-99) Mean Corpuscular Hemoglobin 32.4 PG (27.0-31.0) Mean Corpuscular Hemoglobin Concent 35.1 G/DL (32.0-36.0) Red Cell Distribution Width 11.6 % (11.6-14.8) Platelet Count 254 K/UL (150-450) Mean Platelet Volume 6.3 FL (6.5-10.1) Neutrophils (%) (Auto) % (45.0-75.0) Lymphocytes (%) (Auto) % (20.0-45.0) Monocytes (%) (Auto) % (1.0-10.0) Eosinophils (%) (Auto) % (0.0-3.0) Basophils (%) (Auto) % (0.0-2.0) Urine Color Pale yellow Urine Appearance Clear Urine pH 6 (4.5-8.0) Urine Specific [place] 1.015 (1.005-1.035) Urine Protein 1+ (NEGATIVE) Urine Glucose (UA) Negative (NEGATIVE) Urine Ketones Negative (NEGATIVE) Urine Blood 4+ (NEGATIVE) Urine Nitrite Negative (NEGATIVE) Urine Bilirubin Negative (NEGATIVE) Urine Urobilinogen Normal MG/DL (0.0-1.0) Urine Leukocyte Esterase Negative (NEGATIVE) Urine RBC 2-4 /HPF (0 - 2) Urine WBC 5-10 /HPF (0 - 2) Urine Squamous Epithelial Cells Few /LPF (NONE/OCC) Urine Bacteria Moderate /HPF (NONE) Urine Yeast Few /HPF (NONE) Sodium Level 138 MMOL/L (136-145) Potassium Level 3.6 MMOL/L (3.5-5.1) Chloride Level 101 MMOL/L (98-107) Carbon Dioxide Level 27 MMOL/L (21-32) Anion Gap 10 mmol/L (5-15) Blood Urea Nitrogen 12 mg/dL (7-18) Creatinine 0.6 MG/DL (0.55-1.30) Estimat Glomerular Filtration Rate > 60 mL/min (>60) Glucose Level 108 MG/DL (74-106) Calcium Level 8.3 MG/DL (8.5-10.1) Total Bilirubin 0.3 MG/DL (0.2-1.0) Aspartate Amino Transf (AST/SGOT) 11 U/L (15-37) Alanine Aminotransferase (ALT/SGPT) 20 U/L (12-78) Alkaline Phosphatase 79 U/L (46-116) Total Protein 7.8 G/DL (6.4-8.2) Albumin 3.3 G/DL (3.4-5.0) Globulin 4.5 g/dL Albumin/Globulin Ratio 0.7 (1.0-2.7) EKG Diagnostic Results Rate: normal Rhythm: NSR ST Segments: no acute changes ASA given to the pt in ED: No PA Scribe Text Obey Perez PA-C Rhythm Strip Diag. Results EP Interpretation: yes Rate: 82 Rhythm: NSR, no PVC's, no ectopy PA Scribe Text Obey Perez PA-C Chest X-Ray Diagnostic Results Chest X-Ray Diagnostic Results : Chest X-Ray Ordered: Yes # of Views/Limited/Complete: 1 View Indication: Chest Pain EP Interpretation: Yes PA Xray: Interpretation reviewed, by supervising MD, and agrees with findings. Interpretation: no consolidation, no effusion, no pneumothorax, no acute cardiopulmonary disease Impression: No acute disease PA Scribe Nelson Perez PA-C Last Vital Signs Date Time Temp Pulse Resp B/P (MAP) Pulse Ox O2 Delivery O2 Flow Rate FiO2 01/23/18 17:43 92 18 Room Air 01/23/18 17:43 99.1 153/78 98 Status: improved Disposition: HOME, SELF-CARE Condition: Stable Scripts Acetaminophen* (TYLENOL EXTRA STRENGTH*) 500 Mg Tablet 500 MG ORAL Q8H PRN for Prn Headache/Temp > 101, #30 TAB 0 Refills Prov: Favio Perez P.A. 01/23/18 Cephalexin* (KEFLEX*) 500 Mg Capsule 500 MG ORAL EVERY 12 HOURS, #14 CAP 0 Refills Prov: Favio Perez P.A. 01/23/18 Referrals: [facility],REFERRING (PCP) Patient Instructions: Managing Your High Blood Pressure, Urinary Tract Infection, [id number], Vaginal Yeast Infection, Adult Additional Instructions: Followup with primary care provider and followup with and./or OBGYN. Drink plenty of fluids. Take medications as directed. Pyridium has SE of turning urine orange. Patient questions asked and answered. ER precautions given, patient instructed to return to ER immediately for any new or worsening of symptoms. Favio Perez Jan 23, 2018 18:24
[2018-01-23] MEDS ORDERED: Ketorolac 30mg Inj IM ONE (18:30)
[2018-01-23 19:00] LABS: APPEARANCE,URINE CLEAR; BILIRUBIN, URINE NEGATIVE (NEGATIVE); COLOR,URINE PALE YELLOW; GLUCOSE, URINE (UA) NEGATIVE (NEGATIVE); KETONES,URINE NEGATIVE (NEGATIVE); LEUKOCYTE ESTERASE ,URINE NEGATIVE (NEGATIVE); NITRITE,URINE NEGATIVE (NEGATIVE); PH,URINE 6 (4.5-8.0); PROTEIN,URINE 1+ (NEGATIVE); UROBILINOGEN,URINE NORMAL MG/DL (0.0-1.0)
[2018-01-23 19:12] LABS: ANION GAP 10 mmol/L (5-15); BLOOD UREA NITROGEN 12 mg/dL (7-18); CALCIUM 8.3 MG/DL (8.5-10.1); CARBON DIOXIDE 27 MMOL/L (21-32); CHLORIDE 101 MMOL/L (98-107); CREATININE 0.6 MG/DL (0.55-1.30); HEMATOCRIT 37.9 % (37.0-47.0); HEMOGLOBIN 13.3 G/DL (12.0-16.0); MEAN CORPUSCULAR VOLUME 92 FL (80-99); PLATELET COUNT 254 K/UL (150-450); POTASSIUM 3.6 MMOL/L (3.5-5.1); RED CELL DISTRIBUTION WIDTH 11.6 % (11.6-14.8); SODIUM 138 MMOL/L (136-145); WHITE BLOOD COUNT 10.8 K/UL (4.8-10.8)
[2018-01-23] MEDS ORDERED: Fluconazole 100mg tab ORAL ONE (19:15)
[2018-01-23 19:16] LABS: ALANINE AMINOTRANSFERASE 20 U/L (12-78); ALBUMIN 3.3 G/DL (3.4-5.0); ALBUMIN/GLOBULIN RATIO 0.7 (1.0-2.7); ALKALINE PHOSPHATASE 79 U/L (46-116); ASPARTATE AMINO TRANSFERASE 11 U/L (15-37); BILIRUBIN,TOTAL 0.3 MG/DL (0.2-1.0)
[2018-01-23] MEDS ORDERED: CEPHALEXIN500 MG ORAL (19:29)
[2018-01-23] MEDS ORDERED: TYLENOL EXTRA500 MG ORAL (19:29)
[2018-01-23 20:14] VITALS: BP 131/75
[2018-01-23 20:15] VITALS: BP 131/75
--- NOTE | 2018-01-24 11:03 | Diagnostic Imaging Report ---
Indication: Chest pain Technique: One view of the chest Comparison: 07/27/2017 Findings: Suboptimal inspiration. Questionable right suprahilar patchy infiltrate noted. There is also questionable left perihilar infiltrate or congestion. These findings are not evident previously. The remainder the lungs and pleural spaces are clear. The heart size is normal. There are degenerative spondylosis changes Impression: Right suprahilar and left perihilar infiltrate versus congestion. Could in part be artifact of low lung volumes, however. Correlate with clinical findings
--- NOTE | 2018-01-24 16:58 | Cardiology Report ---
APPROVED REPORT EKG Measurement Heart [id number] Normal sinus rhythm Left axis deviation Voltage criteria for left ventricular hypertrophy Abnormal ECG
== END 2018-01-23 20:18 | disposition home or self-care (01) ==
LOC: EMR 18:12
DX: N39.0 Urinary tract infection, site not specified (principal); B37.9 Candidiasis, unspecified; I10 Essential (primary) hypertension; K21.9 Gastro-esophageal reflux disease without esophagitis; J45.909 Unspecified asthma, uncomplicated
CPT/HCPCS: 36415; 71045; 80053; 81003; 85007; 85025; 86710; 87086; 93005; 96372; 99283; J1885

== ENCOUNTER 2018-03-01 10:10 | Emergency (ER) | payer MEDICAID ==
[~2018-03-01] VITALS: Ht 152.4 cm; Wt 77.1 kg
[~2018-03-01 10:10] MED LIST changes: +CEPHALEXIN500 MG ORAL; +TYLENOL EXTRA500 MG ORAL
[2018-03-01] MEDS ORDERED: Albuterol ud Inhalation HHN ONE (10:30)
--- NOTE | 2018-03-01 10:56 | Diagnostic Imaging Report ---
Indication: Shortness of breath Technique: XRAY Chest 1v Comparison: 01/23/2018 Findings: Heart is enlarged. Mediastinal contours are sharp. There is no definite focal airspace consolidation. No pleural effusion or pneumothorax. There are degenerative changes of the spine. No acute osseous abnormality. Impression: No focal airspace consolidation, pleural effusion or pneumothorax. Stable mild cardiomegaly.
--- NOTE | 2018-03-01 11:39 | Emergency Room Report ---
History of Present Illness General Chief Complaint: Upper Respiratory Illness Source: Patient Present Illness HPI This patient states that she has had a cough, congestion with sputum production for the past week. The patient states she does have a history of asthma, although, her symptoms are seasonal. She did have an albuterol inhaler in the past but hasn't had to use and about a year. She did not get her influenza vaccine. She denies fever or chills. She denies nausea or vomiting. She denies headache or neck pain. She has no other complaints. Allergies: Coded Allergies: No Known Allergies (Unverified , 10/05/16) Patient History Past Medical History: see triage record, HTN, asthma Social History: Denies: smoking, alcohol use, drug use Reviewed Nursing Documentation: PMH: Agreed; PSxH: Agreed Nursing Documentation-PMH Past Medical History: No History, Except For Hx Hypertension: Yes Hx Asthma: Yes Hx Gastrointestinal Problems: Yes - Gerd Review of Systems All Other Systems: negative except mentioned in HPI Physical Exam Vital Signs Date Time Temp Pulse Resp B/P (MAP) Pulse Ox O2 Delivery O2 Flow Rate FiO2 03/01/18 10:15 98.8 90 20 147/82 95 Room Air 03/01/18 10:44 21 Sp02 EP Interpretation: reviewed, normal General Appearance: no apparent distress, alert, GCS 15, non-toxic Head: normocephalic, atraumatic Eyes: bilateral eye normal inspection, bilateral eye PERRL ENT: hearing grossly normal, normal pharynx, no angioedema, normal voice Neck: full range of motion, supple/symm/no masses Respiratory: chest non-tender, lungs clear, normal breath sounds, no respiratory distress, no retraction, no accessory muscle use, speaking full sentences Cardiovascular #1: regular rate, rhythm, no edema Gastrointestinal: normal bowel sounds, non tender, soft, non-distended, no guarding, no rebound Rectal: deferred Musculoskeletal: back normal, gait/station normal, normal range of motion, non- tender Neurologic: alert, oriented x3, responsive, motor strength/tone normal, sensory intact, speech normal Psychiatric: judgement/insight normal, memory normal, mood/affect normal, no suicidal/homicidal ideation Skin: normal color, no rash, warm/dry, well hydrated Medical Decision Making Diagnostic Impression: Primary Impression: Bronchitis Additional Impression: Bronchitis with bronchospasm ER Course This patient has a clinical presentation consistent with bronchitis and asthma exacerbation. Patient has a history of asthma and has an irritable cough and had significant relief with albuterol treatment here in the emergency department. The patient had significant improvement in subjective shortness of breath. I will also treat the patient with a course of antibiotics as this has been shown to improve the course of an asthma exacerbation. The patient was given close return precautions and followup instructions. Chest X-Ray Diagnostic Results Chest X-Ray Diagnostic Results : Chest X-Ray Ordered: Yes # of Views/Limited/Complete: 1 View Indication: Shortness of Breath Interpretation: no consolidation, no effusion, no pneumothorax, no acute cardiopulmonary disease, other - Stable cardiomegaly Impression: No acute disease Electronically Signed by: Harmony Dudley DO Last Vital Signs Date Time Temp Pulse Resp B/P (MAP) Pulse Ox O2 Delivery O2 Flow Rate FiO2 03/01/18 10:45 83 16 98 Room Air 21 03/01/18 10:15 98.8 147/82 Status: improved Disposition: HOME, SELF-CARE Condition: Improved Harmony Dudley DO Mar 01, 2018 11:39
[2018-03-01] MEDS ORDERED: ALBUTEROL SULF8.5 GM INH (11:41)
[2018-03-01] MEDS ORDERED: ZITHROMAX250 MG ORAL (11:41)
[2018-03-01 11:56] VITALS: BP 143/80
== END 2018-03-01 11:54 | disposition home or self-care (01) ==
LOC: EMR 11:39
DX: J45.909 Unspecified asthma, uncomplicated (principal); I10 Essential (primary) hypertension; K21.9 Gastro-esophageal reflux disease without esophagitis
CPT/HCPCS: 71045; 86710; 94640; 94664; 99284